=== PATIENT | female | born 1965 | race Caucasian/White ===

== ENCOUNTER 2023-07-18 01:20 | Emergency (ER) | payer MEDICAID ==
[~2023-07-18] VITALS: Ht 162.6 cm; Wt 72.0 kg
[2023-07-18 01:00] VITALS: PULSE 40
[2023-07-18] MEDS ORDERED: TENECTEPLASE 50MG/VIAL (FOR MI OR PE) IV NR (01:45)
[2023-07-18] MEDS ORDERED: ONDANSETRON HCL 4MG/2ML INJ IV STA (02:01)
[2023-07-18] MEDS ORDERED: MORPHINE SULFATE 4 MG/ML CPJ (NOT FOR IM USE) IV STA (02:01)
[2023-07-18] MEDS ORDERED: NOREPINEPHRINE 8MG/250ML PMX 250 ML IV STA (02:07)
[2023-07-18] MEDS ORDERED: EPINEPHRINE 5 MG in SODIUM CHLORIDE 0.9% 245 ML IV STA ×2 (02:07→02:12)
[2023-07-18 02:14] LABS: BG BASE EXCESS -24.2 mmol/L (-2.0-2.0); BG CARBOXYHEMOGLOBIN 0.3 % (0.5-1.5); BG DEOXYHEMOGLOBIN 30.2 % (0.0-5.0); BG FRACTION INSPIRED OXYGEN 100; BG HCO3 ACT 10.6 mmol/L (22.0-26.0); BG METHEMOGLOBIN 0.1 % (0.0-1.5); BG OXYGEN SATURATION 69.7 % (92.0-98.5); BG OXYHEMOGLOBIN 69.4 % (94.0-97.0); BG PCO2 71.7 mmHg (35.0-45.0); BG PH 6.789 (7.350-7.450); BG PO2 64.5 mmHg (75.0-100.0); BG SAMPLE SITE LEFT RADIAL; BG TOTAL HEMOGLOBIN 11.3 g/dL (12.0-18.0); BG VENT MODE VENT - AC
[2023-07-18] MEDS ORDERED: SODIUM CHLORIDE 0.9% 1000ML BAG (SEPSIS BOLUS) IV ONE (02:15)
[2023-07-18] MEDS ORDERED: NOREPINEPHRINE 8MG/250ML PMX 250 ML IV NR (02:15)
[2023-07-18] MEDS ORDERED: EPINEPHRINE 5 MG in SODIUM CHLORIDE 0.9% 245 ML IV NR (02:15)
== END 2023-07-18 06:50 ==
LOC: ER 01:28
DX: I46.9 Cardiac arrest, cause unspecified (principal); I21.3 ST elevation (STEMI) myocardial infarction of unspecified site; F19.90 Other psychoactive substance use, unspecified, uncomplicated
CPT/HCPCS: 82805; 82375; 92950 ×2; 93005; 31500; 36556; 99285; 36600; J2997; J3490 ×2; J7050; J7030; Z7610 ×4; 94002